=== PATIENT | female | born 1940 | race Caucasian/White ===

== ENCOUNTER 2021-03-24 13:04 | Inpatient (IN) ==
[2021-03-24 14:03] LABS: Basophils # 0.1 10*3/uL (0.0-0.2); Basophils % 1.1 % (0.0-0.8); Eosinophils # 0.4 10*3/uL (0.0-0.87); Eosinophils % 4.8 % (0.00-10.9); Hematocrit 43.7 VOL% (35.7-47.0); Hemoglobin 13.7 GM/DL (12.0-16.0); Immature Granulocytes % 0.5 %; Immature Granulocytes Absolute 0.04 #; Lymphocytes # 3.5 10*3/uL (1.4-4.0); Lymphocytes % 42.4 % (21.3-54.2); Mean Corpuscular HGB Conc 31.4 GM/DL (32-36); Mean Corpuscular Volume 97.3 FL (87-102); Mean Platelet Volume 9.9 FL (9.6-12.0); Monocytes % 7.7 % (1.7-12.7); Neutrophils % 43.5 % (38.7-73.9); Platelet Count 299 T/CUMM (130-400); Red Blood Count 4.49 MC/CUMM (3.8-5.5); White Blood Count 8.1 T/CUMM (4-12)
[2021-03-24] MEDS ORDERED: FUROSEMIDE 40 MG/4 ML VIAL IV STA (14:05)
[2021-03-24 14:25] LABS: INR 1.1; PT Patient Result 11.8 SECS (10.5-12.0); Partial Thromboplastin Time 26.2 SECS (23.8-32.1)
[2021-03-24 14:33] LABS: Bilirubin,Total 0.5 MG/DL (0.20-1.00); Calcium 10.1 MG/DL (8.5-10.1); Osmolality,Calculated 272.1 MOS/KG (273-304); Potassium 4.3 MMOL/L (3.5-5.1); Total Protein 7.6 G/DL (6.4-8.2)
[2021-03-24] MEDS ORDERED: hydrALAZINE 20 MG/1 ML VIAL IV STA (15:43)
[2021-03-24] MEDS ORDERED: hydrALAZINE 20 MG/1 ML VIAL IV PRN (15:59)
[2021-03-24] MEDS ORDERED: GLUCAGON 1 MG VIAL IM PRN (15:59)
[2021-03-24] MEDS ORDERED: DEXTROSE 10% 250 ML BAG IV PRN (15:59)
[2021-03-24] MEDS: ENOXAPARIN 80 MG/0.8 ML SYRINGE SUBCUT SCH (16:20)
[2021-03-24] MEDS ORDERED: METOPROLOL TARTRATE 25 MG TABLET PO SCH (21:00)
[2021-03-24] MEDS: GABAPENTIN 600 MG TABLET PO SCH (22:41)
[2021-03-25 05:16] LABS: Basophils # 0.1 10*3/uL (0.0-0.2); Basophils % 1.1 % (0.0-0.8); Eosinophils # 0.3 10*3/uL (0.0-0.87); Eosinophils % 4.4 % (0.00-10.9); Hematocrit 41.4 VOL% (35.7-47.0); Immature Granulocytes % 0.3 %; Immature Granulocytes Absolute 0.02 #; Lymphocytes # 2.5 10*3/uL (1.4-4.0); Lymphocytes % 39.9 % (21.3-54.2); Mean Corpuscular HGB Conc 31.4 GM/DL (32-36); Mean Corpuscular Volume 98.3 FL (87-102); Mean Platelet Volume 9.7 FL (9.6-12.0); Monocytes % 11.1 % (1.7-12.7); Neutrophils % 43.2 % (38.7-73.9); Platelet Count 268 T/CUMM (130-400); Red Blood Count 4.21 MC/CUMM (3.8-5.5); Red Cell Distribution Width 14.2 % (9.3-17.3); White Blood Count 6.2 T/CUMM (4-12)
[2021-03-25 05:45] LABS: Calcium 9.5 MG/DL (8.5-10.1); Osmolality,Calculated 282.4 MOS/KG (273-304); Potassium 3.9 MMOL/L (3.5-5.1); Risk Ratio 4.43; VLDL Cholesterol 25.4 MG/DL
[2021-03-25] MEDS: ENOXAPARIN 80 MG/0.8 ML SYRINGE SUBCUT SCH ×2 (06:09→20:42)
[2021-03-25] MEDS ORDERED: METOPROLOL TARTRATE 25 MG TABLET PO SCH (09:00)
[2021-03-25] MEDS ORDERED: [UNRECOGNIZED DRUG - OTHER] PO SCH (09:00)
[2021-03-25] MEDS ORDERED: GLUCOSAM CHON MSM1 C MANG BOSW PO SCH (09:00)
[2021-03-25] MEDS: ASPIRIN EC 81 MG TABLET PO SCH (09:16)
[2021-03-25] MEDS: OMEGA 3 ACID ETHYL ESTERS 1 GM CAPSULE PO SCH (09:17)
[2021-03-25] MEDS: PANTOPRAZOLE 40 MG TABLET PO SCH (09:17)
[2021-03-25] MEDS: GABAPENTIN 300 MG CAPSULE PO SCH ×2 (09:27→20:41)
[2021-03-25] MEDS: FUROSEMIDE 40 MG/4 ML VIAL IV SCH (12:56)
[2021-03-25] MEDS: atenoloL 25 MG TABLET PO SCH (20:41)
[2021-03-25] MEDS: ZALEPLON 5 MG CAPSULE PO PRN (20:42)
[2021-03-25] MEDS: GABAPENTIN 600 MG TABLET PO SCH (20:42)
[2021-03-26 08:12] LABS: Calcium 9.1 MG/DL (8.5-10.1); Osmolality,Calculated 275.8 MOS/KG (273-304)
[2021-03-26] MEDS: OMEGA 3 ACID ETHYL ESTERS 1 GM CAPSULE PO SCH (08:34)
[2021-03-26] MEDS: GABAPENTIN 300 MG CAPSULE PO SCH ×2 (08:34→20:54)
[2021-03-26] MEDS: PANTOPRAZOLE 40 MG TABLET PO SCH (08:34)
[2021-03-26] MEDS: atenoloL 25 MG TABLET PO SCH (08:35)
[2021-03-26] MEDS: ENOXAPARIN 80 MG/0.8 ML SYRINGE SUBCUT SCH ×2 (08:36→20:55)
[2021-03-26] MEDS: FUROSEMIDE 40 MG/4 ML VIAL IV SCH (08:38)
[2021-03-26 18:45] LABS: Bacteria,Urine Occasional /HPF (Few); Bilirubin,Urine Negative (Negative); Blood, Urine Negative (Negative); Glucose,Urine (UA) Negative (Negative); Hyaline Casts,Urine 3 /LPF (0-3); Ketones,Urine Negative (Negative); Nitrite,Urine Negative (Negative); Protein,Urine Negative; RBC,Urine 2 /HPF (0-4); Squamous Epithelial Cell,Urine Occasional /HPF (0-10); Urine Appearance CLEAR (Clear); Urine Color Yellow (Yellow); Urine Specific Gravity 1.012 (1.001-1.035); Urine Urobilinogen < 2.0 EU/DL (<2.0)
[2021-03-26] MEDS: GABAPENTIN 600 MG TABLET PO SCH (20:54)
[2021-03-26] MEDS: ZALEPLON 5 MG CAPSULE PO PRN (20:55)
[2021-03-27 07:05] LABS: Calcium 9.3 MG/DL (8.5-10.1); Osmolality,Calculated 279.5 MOS/KG (273-304); Potassium 3.8 MMOL/L (3.5-5.1)
[2021-03-27] MEDS: PANTOPRAZOLE 40 MG TABLET PO SCH (08:57)
[2021-03-27] MEDS: OMEGA 3 ACID ETHYL ESTERS 1 GM CAPSULE PO SCH (08:57)
[2021-03-27] MEDS ORDERED: atenoloL 25 MG TABLET PO SCH (09:00)
[2021-03-27] MEDS: FUROSEMIDE 40 MG/4 ML VIAL IV SCH (09:00)
[2021-03-27] MEDS: ENOXAPARIN 80 MG/0.8 ML SYRINGE SUBCUT SCH ×2 (09:01→20:32)
[2021-03-27] MEDS: GABAPENTIN 300 MG CAPSULE PO SCH ×2 (09:02→20:31)
[2021-03-27] MEDS: ZALEPLON 5 MG CAPSULE PO PRN (20:31)
[2021-03-27] MEDS: GABAPENTIN 600 MG TABLET PO SCH (20:32)
[2021-03-28] MEDS: ASPIRIN EC 81 MG TABLET PO SCH (08:46)
[2021-03-28] MEDS: OMEGA 3 ACID ETHYL ESTERS 1 GM CAPSULE PO SCH (08:47)
[2021-03-28] MEDS: FUROSEMIDE 20 MG TABLET PO SCH (08:47)
[2021-03-28] MEDS: PANTOPRAZOLE 40 MG TABLET PO SCH (08:47)
[2021-03-28] MEDS: APIXABAN 5 MG TABLET PO SCH ×2 (08:47→20:36)
[2021-03-28] MEDS: atenoloL 25 MG TABLET PO SCH (08:47)
[2021-03-28] MEDS: GABAPENTIN 300 MG CAPSULE PO SCH ×2 (08:57→20:36)
[2021-03-28] MEDS: ASCORBIC ACID 500 MG TABLET PO SCH ×2 (12:50→20:36)
[2021-03-28] MEDS: ZALEPLON 5 MG CAPSULE PO PRN (20:36)
[2021-03-28] MEDS: GABAPENTIN 600 MG TABLET PO SCH (20:36)
[2021-03-29 05:03] LABS: Basophils # 0.1 10*3/uL (0.0-0.2); Basophils % 1.2 % (0.0-0.8); Eosinophils # 0.3 10*3/uL (0.0-0.87); Eosinophils % 5.3 % (0.00-10.9); Hemoglobin 12.7 GM/DL (12.0-16.0); Immature Granulocytes % 0.4 %; Immature Granulocytes Absolute 0.02 #; Lymphocytes # 2.9 10*3/uL (1.4-4.0); Lymphocytes % 50.9 % (21.3-54.2); Mean Corpuscular Volume 98.1 FL (87-102); Mean Platelet Volume 10.2 FL (9.6-12.0); Monocytes % 12.8 % (1.7-12.7); Neutrophils % 29.4 % (38.7-73.9); Platelet Count 251 T/CUMM (130-400); Red Blood Count 4.18 MC/CUMM (3.8-5.5); Red Cell Distribution Width 14.1 % (9.3-17.3); White Blood Count 5.6 T/CUMM (4-12)
[2021-03-29 05:22] LABS: Calcium 9.1 MG/DL (8.5-10.1); Osmolality,Calculated 278.7 MOS/KG (273-304); Potassium 4.1 MMOL/L (3.5-5.1)
[2021-03-29 05:37] LABS: Atypical Lymphocytes Few; Band Neutrophils 2 % (0-10); Eosinophils 7 % (0-10); Lymphocytes 42 % (20-55); Segmented Neutrophils 39 % (50-85); Total Cells Counted 100
[2021-03-29 05:38] LABS: Hypochromia 1+
[2021-03-29 05:39] LABS: Macrocytosis Slight
[2021-03-29] MEDS: FUROSEMIDE 20 MG TABLET PO SCH (09:14)
[2021-03-29] MEDS: ASCORBIC ACID 500 MG TABLET PO SCH (09:14)
[2021-03-29] MEDS: atenoloL 25 MG TABLET PO SCH (09:14)
[2021-03-29] MEDS: APIXABAN 5 MG TABLET PO SCH (09:14)
[2021-03-29] MEDS: PANTOPRAZOLE 40 MG TABLET PO SCH (09:14)
[2021-03-29] MEDS: GABAPENTIN 300 MG CAPSULE PO SCH (09:16)
[2021-03-29] MEDS: OMEGA 3 ACID ETHYL ESTERS 1 GM CAPSULE PO SCH (09:17)
[2021-03-29 16:32] VITALS: BP 105/70
== END 2021-03-29 17:15 | disposition home or self-care (01) | DRG 291 ==
LOC: N.ED 13:04 → N.TELES 13:04 → SUATTDRO 15:59 → N.TELES 18:10 → SUATTDRO 03-26 13:57
PROVIDERS: ADMIT Internal Medicine; ATTEND Internal Medicine